=== PATIENT | male | born 1950 | race Caucasian/White ===

== ENCOUNTER 2018-08-31 12:52 | Inpatient (IN) | payer OTHER, MEDICAID ==
[~2018-08-31] VITALS: Ht 165.1 cm; Wt 50.9 kg
[2018-08-31] MEDS ORDERED: MOME13HF2 IH (13:20)
[2018-08-31] MEDS ORDERED: SENN-148 PO (13:20)
[2018-08-31] MEDS ORDERED: VALP250C3 PO (13:20)
[2018-08-31] MEDS ORDERED: DIVA250T4 PO (13:20)
[2018-08-31] MEDS ORDERED: ACET500C4 PO (13:20)
[2018-08-31] MEDS ORDERED: OLAN2.5T3 PO (13:20)
[2018-08-31] MEDS ORDERED: FAMO-132 PO (13:20)
[2018-08-31] MEDS ORDERED: ALBU8HFA4 INH (13:20)
[2018-08-31] MEDS ORDERED: DIVA500T2 PO (13:20)
[2018-08-31 13:29] LABS: BASOPHILS % (AUTO) 0.7 % (0.0-2.0); EOSINOPHILS # (AUTO) 0.1 K/uL (0.0-0.7); EOSINOPHILS % (AUTO) 2.3 % (0.0-7.0); HEMATOCRIT 41.7 % (36.7-47.1); HEMOGLOBIN 13.9 g/dL (12.5-16.3); LYMPHOCYTES # (AUTO) 1.8 K/uL (20.0-40.0); LYMPHOCYTES % (AUTO) 38.1 % (20.5-51.5); MEAN CORPUSCULAR HEMOGLOBIN 32.5 uug (23.8-33.4); MEAN CORPUSCULAR HGB CONC 33 g/dL (32.5-36.3); MEAN CORPUSCULAR VOLUME 97.6 fL (73.0-96.2); MONOCYTES # (AUTO) 0.7 K/uL (2.0-10.0); MONOCYTES % (AUTO) 13.5 % (0.0-11.0); NEUTROPHILS # (AUTO) 2.2 K/uL (1.8-8.9); NEUTROPHILS % (AUTO) 45.4 % (38.5-71.5); RED BLOOD CELL COUNT(AUTO) 4.28 MIL/uL (4.06-5.63); WHITE BLOOD COUNT (AUTO) 4.8 K/uL (3.6-10.2)
[2018-08-31 13:30] LABS: PLATELET COUNT (AUTO) 59 K/uL (152-348)
[2018-08-31 13:33] LABS: CARBON DIOXIDE 31 mmol/L (21-32); CHLORIDE 101 mmol/L (98-107); CREATININE 0.9 mg/dL (0.6-1.3); GLUCOSE 80 mg/dL (74-106); POTASSIUM 4.5 mmol/L (3.5-5.1); UREA NITROGEN, BLOOD 17 mg/dL (7-18)
[2018-08-31 13:39] LABS: ALANINE AMINOTRANSFERASE 13 U/L (16-63); ALKALINE PHOSPHATASE 69 U/L (50-136); ASPARTATE AMINOTRANSFERASE 19 U/L (15-37); BAND % (MANUAL) 38 % (0-10); BILIRUBIN,DIRECT 0.2 mg/dL (0.0-0.2); BILIRUBIN,TOTAL 0.4 mg/dL (0.2-1.0); LYMPHOCYTES % (MANUAL) 13 % (20-40); MONOCYTES % (MANUAL) 2 % (2-10); NEUTROPHILS % (MANUAL) 47 % (42-75); TOTAL PROTEIN, SERUM 6.5 g/dL (6.4-8.2); VALPROIC ACID 133 ug/mL (50-100)
[2018-08-31 13:43] LABS: ACETAMINOPHEN < 2.0 ug/mL (10-30)
[2018-08-31 13:45] LABS: ETHANOL < 3 MG/DL (0-0)
--- NOTE | 2018-08-31 13:45 | NUR ---
Patient is medically cleared by Dr Panda.
--- NOTE | 2018-08-31 13:58 | NUR ---
Lunch tray at bedside.
--- NOTE | 2018-08-31 15:43 | NUR ---
Patient is eating lunch with good appetite, still for psych evaluation
--- NOTE | 2018-08-31 16:36 | NUR ---
Sunny Davila at bedside for psych eval.
[2018-08-31 17:23] LABS: *BILIRUBIN,URIN NEGATIVE (NEGATIVE); *BLOOD, URINE NEGATIVE (NEGATIVE); *CLARITY,URINE CLEAR (CLEAR); *COLOR,URINE YELLOW (YELLOW); *KETONES,URINE NEGATIVE (NEGATIVE); LEUKOCYTE ESTERASE ,URINE NEGATIVE (NEGATIVE); NITRITE, URINE NEGATIVE (NEGATIVE); UGLUCOSE NEGATIVE (NEGATIVE)
[2018-08-31] MEDS ORDERED: OLANZAPINE 5 MG TABLET ONE (17:23)
--- NOTE | 2018-08-31 17:24 | NUR ---
Patient is eating dinner tray with good appetite, for transfer to 2nd floor as soon as possible
[2018-08-31 17:29] LABS: MUCUS,URINE FEW /LPF (0-FEW); WBC,URINE 0-3 /HPF (0-3)
[2018-08-31] MEDS ORDERED: OLANZAPINE 5 MG TABLET PO ONE (17:30)
[2018-08-31 17:33] LABS: *AMPHETAMINE, URINE NEGATIVE (NEGATIVE); *BARBITURATE, URINE NEGATIVE (NEGATIVE); *CANNABINOID, URINE NEGATIVE (NEGATIVE); *COCCAINE, URINE NEGATIVE (NEGATIVE); *OPIATE, URINE NEGATIVE (NEGATIVE); *PHENCYCLIDINE SCREEN,URINE NEGATIVE (NEGATIVE)
--- NOTE | 2018-08-31 17:49 | NUR ---
Per Adela-our ER registration/admitting office staff, "This patient's insurance wants this patient to be transferred to [facility] Dr Panda notified.
--- NOTE | 2018-08-31 17:57 | NUR ---
Patient's facesheet and summary report were faxed to [phone], pending transfer information still.
--- NOTE | 2018-08-31 18:04 | NUR ---
Patient ambulated to bathroom with one person assist.
--- NOTE | 2018-08-31 18:32 | NUR ---
Patient is resting comfortably on gurney with eyes closed. PATIENT IS PAIN FREE. Patient is waiting for transfer information (assigned bed & nurse) at this time.
--- NOTE | 2018-08-31 19:10 | NUR ---
ANJUAR to [facility], still waiting for transfer information@this time
--- NOTE | 2018-08-31 19:15 | NUR ---
Patient in bed eating, NAD
--- NOTE | 2018-08-31 20:36 | NUR ---
Spoke to Rebeka SolisEngineering Surveyor at [facility]. She stated that they are still looking for a sitter for patient. Direct line given, and awaiting call back for update.
--- NOTE | 2018-08-31 23:05 | NUR ---
ADMITTED PATIENT IN MED SURG FLOOR UNDER THE CARE OF DR. REID, BELONGING LIST DONE. PATIENT AWAKE BUT UNABLE TO ANSWER QUESTION, SPEECH GARBLED. BODY CHECK DONE, WITH GENERALIZED BODY RASHES/PSORIASIS, AND FOREHEAD RASHES WITH BLACK SCAB. PATIENT HAS NO DENTURES, NO HEARING AID. CALL LIGHT WITHIN REACH.
[2018-09-01 00:07] VITALS: BP 124/73
[2018-09-01] MEDS: IV NS 1000 ML 1,000 ML IV PRN ×3 (01:50→20:00)
[2018-09-01 05:36] VITALS: BP 149/74
--- NOTE | 2018-09-01 05:56 | NUR ---
PATIENT SLEPT MOST OF THE NIGHT, NO SOB NO CHEST PAIN NOTED. PATIENT HAS EPISODES VERBALLY ABUSIVE, CURSING STAFF. REDIRECT PATIENT, WITH SOME HELP. PATIENT HAS EPISODES OF AGITATION, RESISTIVE WITH CARE. RENDERED GOOD GAURANG CARE DUE TO EPISODES OF INCONTINENCE, HOWEVER, PATIENT USES URINAL ALSO FOR BLADDER ELIMINATION. CONT TO MONITOR.
[2018-09-01 07:05] LABS: BASOPHILS % (AUTO) 0.3 % (0.0-2.0); EOSINOPHILS # (AUTO) 0.1 K/uL (0.0-0.7); EOSINOPHILS % (AUTO) 2.3 % (0.0-7.0); HEMATOCRIT 40.1 % (36.7-47.1); HEMOGLOBIN 13.6 g/dL (12.5-16.3); MEAN CORPUSCULAR HEMOGLOBIN 32.8 uug (23.8-33.4); MEAN CORPUSCULAR HGB CONC 34 g/dL (32.5-36.3); MEAN CORPUSCULAR VOLUME 96.6 fL (73.0-96.2); MONOCYTES # (AUTO) 0.9 K/uL (2.0-10.0); NEUTROPHILS # (AUTO) 3.8 K/uL (1.8-8.9); NEUTROPHILS % (AUTO) 64.4 % (38.5-71.5); PLATELET COUNT (AUTO) 66 K/uL (152-348); RED BLOOD CELL COUNT(AUTO) 4.15 MIL/uL (4.06-5.63); WHITE BLOOD COUNT (AUTO) 5.9 K/uL (3.6-10.2)
[2018-09-01 07:15] LABS: CREATININE 0.8 mg/dL (0.6-1.3)
[2018-09-01 08:12] LABS: EOSINOPHILS % (MANUAL) 2 % (0-8); LYMPHOCYTES % (MANUAL) 17 % (20-40); MONOCYTES % (MANUAL) 15 % (2-10); NEUTROPHILS % (MANUAL) 66 % (42-75)
[2018-09-01] MEDS ORDERED: ALBUTEROL SULFATE 8 GM HFA.AER.AD INH SCH (09:15)
[2018-09-01] MEDS ORDERED: ACETAMINOPHEN ES 500 MG TABLET PO PRN (09:15)
[2018-09-01] MEDS: OLANZAPINE 2.5 MG TABLET PO SCH (09:15)
[2018-09-01] MEDS: FAMOTIDINE 20 MG TABLET PO SCH ×2 (09:15→21:18)
[2018-09-01] MEDS: FLUTICASONE/VILANTEROL 1 EACH BLST.W.DEV INH SCH (11:00)
[2018-09-01 11:04] VITALS: BP 119/79
[2018-09-01] MEDS: DIVALPROEX 500 MG TABLET.DR PO SCH (13:00)
[2018-09-01 15:11] VITALS: BP 122/68
[2018-09-01] MEDS ORDERED: MOMETASONE INH SCH (17:00)
[2018-09-01] MEDS ORDERED: FORMOTEROL INH SCH (17:00)
--- NOTE | 2018-09-01 18:39 | NUR ---
verbally aggressive and curses with every word spoken. slept a lot today except from when he needed to urinate, pt is continent and tries to get OOB. Bed alarm on at all times. new IV site on L arm. RFA IV infiltrated. Pt able to feed self. Bed low and locked. call light within reached. will cont to monitor.
--- NOTE | 2018-09-01 19:40 | NUR ---
RECEIVED PATIENT IN BED AWAKE NO COMPLAIN OF PAIN AT THIS TIME. ASSISTED WITH TOILETING, USES, KEPT CLEAN AND DRY. PATIENT FOLLOW INSTRUCTION, HOWEVER PATIENT HAS EPISODES OF VERBALLY ABUSIVE, CONT TO REORIENT.
[2018-09-01 20:23] VITALS: BP 148/63
[2018-09-01] MEDS: SENNOSIDES 1 TABLET PO SCH (21:18)
[2018-09-01] MEDS: ALBUTEROL SULFATE 2.5 MG/3 ML NEBU NEB SCH (22:24)
[2018-09-02] MEDS: ALBUTEROL SULFATE 2.5 MG/3 ML NEBU NEB SCH ×4 (00:38→18:56)
[2018-09-02 04:56] VITALS: BP 128/60
--- NOTE | 2018-09-02 07:04 | NUR ---
PATIENT AWAKE, NO SOB NO CHEST PAIN, WITH EPISODE OF COUGH, CONT ON HHT TX ORDERED. PATIENT VERBALLY ABUSIVE CURSES STAFF DURING NURSING CARE. PATIENT CONTINENT AND INCONTINET, ASSISTED WITH TOILETING, USES URINAL. KEPT CLEAN DRY AND COMFORTABLE, CONT TO MONITOR.
[2018-09-02 07:11] LABS: BASOPHILS % (AUTO) 0.6 % (0.0-2.0); EOSINOPHILS # (AUTO) 0.2 K/uL (0.0-0.7); EOSINOPHILS % (AUTO) 3.7 % (0.0-7.0); HEMATOCRIT 39.7 % (36.7-47.1); HEMOGLOBIN 13.2 g/dL (12.5-16.3); LYMPHOCYTES % (AUTO) 39.2 % (20.5-51.5); MEAN CORPUSCULAR HEMOGLOBIN 32.1 uug (23.8-33.4); MEAN CORPUSCULAR HGB CONC 33 g/dL (32.5-36.3); MEAN CORPUSCULAR VOLUME 96.7 fL (73.0-96.2); MONOCYTES # (AUTO) 0.8 K/uL (2.0-10.0); MONOCYTES % (AUTO) 16.7 % (0.0-11.0); NEUTROPHILS % (AUTO) 39.8 % (38.5-71.5); PLATELET COUNT (AUTO) 69 K/uL (152-348)
[2018-09-02 07:12] LABS: CREATININE 0.7 mg/dL (0.6-1.3); MAGNESIUM 1.5 mg/dL (1.8-2.4); PHOSPHOROUS 3.5 mg/dL (2.5-4.9); POTASSIUM 3.5 mmol/L (3.5-5.1)
[2018-09-02 08:17] VITALS: BP 127/78
[2018-09-02] MEDS: FAMOTIDINE 20 MG TABLET PO SCH ×2 (08:36→20:24)
[2018-09-02] MEDS: OLANZAPINE 2.5 MG TABLET PO SCH (08:36)
[2018-09-02] MEDS: DIVALPROEX 500 MG TABLET.DR PO SCH ×2 (08:36→13:44)
[2018-09-02] MEDS: FLUTICASONE/VILANTEROL 1 EACH BLST.W.DEV INH SCH (08:45)
[2018-09-02 11:20] VITALS: BP 105/64
[2018-09-02 11:57] LABS: BAND % (MANUAL) 3 % (0-10); EOSINOPHILS % (MANUAL) 6 % (0-8); LYMPHOCYTES % (MANUAL) 37 % (20-40); MONOCYTES % (MANUAL) 15 % (2-10); NEUTROPHILS % (MANUAL) 39 % (42-75)
[2018-09-02] MEDS: MAGNESIUM SULFATE/D5W 100 ML IV SCH ×2 (13:47→15:37)
[2018-09-02 15:38] VITALS: BP 101/68
--- NOTE | 2018-09-02 18:17 | NUR ---
doctor scott in the unit to see patient for psych consult.
[2018-09-02] MEDS: RIVASTIGMINE TARTRATE 1.5 MG CAPSULE PO SCH (20:24)
[2018-09-02] MEDS: SENNOSIDES 1 TABLET PO SCH (20:24)
[2018-09-02] MEDS: IV NS 1000 ML 1,000 ML IV PRN (20:25)
[2018-09-02 20:57] VITALS: BP 114/67
[2018-09-03] MEDS: ALBUTEROL SULFATE 2.5 MG/3 ML NEBU NEB SCH ×4 (01:22→19:28)
[2018-09-03 04:36] VITALS: BP 127/78
--- NOTE | 2018-09-03 05:15 | NUR ---
pt slept very little during the night, pt denies having any pain or difficulty breathing. pt was calm and cooperative most of the shift but would sometimes be very rude and verbally aggressive, but easily redirected. all needs met, safety measures are in place, call light within reach, bed alarm is on.
[2018-09-03] MEDS: FAMOTIDINE 20 MG TABLET PO SCH ×2 (08:18→20:11)
[2018-09-03] MEDS: OLANZAPINE 2.5 MG TABLET PO SCH ×2 (08:19→16:24)
[2018-09-03] MEDS: RIVASTIGMINE TARTRATE 1.5 MG CAPSULE PO SCH ×2 (08:19→20:12)
[2018-09-03] MEDS: DIVALPROEX 500 MG TABLET.DR PO SCH ×2 (08:20→12:52)
[2018-09-03] MEDS: FLUTICASONE/VILANTEROL 1 EACH BLST.W.DEV INH SCH (08:43)
[2018-09-03 09:14] LABS: CREATININE 0.9 mg/dL (0.6-1.3); MAGNESIUM 1.6 mg/dL (1.8-2.4); PHOSPHOROUS 3.6 mg/dL (2.5-4.9)
[2018-09-03 09:19] LABS: HEMOGLOBIN 12.8 g/dL (12.5-16.3); RED BLOOD CELL COUNT(AUTO) 3.95 MIL/uL (4.06-5.63)
[2018-09-03 09:35] LABS: BASOPHILS % (AUTO) 0.5 % (0.0-2.0); EOSINOPHILS # (AUTO) 0.3 K/uL (0.0-0.7); EOSINOPHILS % (AUTO) 3.7 % (0.0-7.0); HEMATOCRIT 38.3 % (36.7-47.1); LYMPHOCYTES # (AUTO) 1.8 K/uL (20.0-40.0); LYMPHOCYTES % (AUTO) 24.6 % (20.5-51.5); MEAN CORPUSCULAR HEMOGLOBIN 32.3 uug (23.8-33.4); MEAN CORPUSCULAR HGB CONC 33 g/dL (32.5-36.3); MEAN CORPUSCULAR VOLUME 96.9 fL (73.0-96.2); MONOCYTES # (AUTO) 1.2 K/uL (2.0-10.0); MONOCYTES % (AUTO) 16.2 % (0.0-11.0); THYROID STIMULATING HORMONE 1.55 mIU/mL (0.358-3.740)
[2018-09-03 09:40] LABS: PLATELET COUNT (AUTO) 94 K/uL (152-348); WHITE BLOOD COUNT (AUTO) 7.2 K/uL (3.6-10.2)
[2018-09-03] MEDS ORDERED: OLAN2.5T3 PO (09:50)
[2018-09-03] MEDS ORDERED: DIVA500T2 PO (09:50)
[2018-09-03] MEDS ORDERED: Rivastigmine Tartrate PO (09:50)
--- NOTE | 2018-09-03 09:52 | NUR ---
NEW ORDERS NOTED TO DISCHARGE PATIENT HOME TODAY NOTED FROM DR SOOD WILL AWAIT FOR THE WHIPPED TOPPING SUPERVISOR TO DETERMINE HIS FINAL DESTINATION.
--- NOTE | 2018-09-03 10:48 | NUR ---
ULTRA SOUND OF THE ABDOMEN COMPLETED ORDERED AWAITING FOR RESULTS.
[2018-09-03 11:13] LABS: BASOPHILS % (MANUAL) 2 % (0-2); EOSINOPHILS % (MANUAL) 4 % (0-8); LYMPHOCYTES % (MANUAL) 27 % (20-40); MONOCYTES % (MANUAL) 12 % (2-10); NEUTROPHILS % (MANUAL) 55 % (42-75)
[2018-09-03 11:18] VITALS: BP 122/78
[2018-09-03 15:04] VITALS: BP 113/71
[2018-09-03] MEDS: IV NS 1000 ML 1,000 ML IV PRN (16:24)
--- NOTE | 2018-09-03 18:00 | NUR ---
PER THE NEWSPAPER OR PERIODICAL EDITOR DISCHARGE IS PENDING DUE TO PLACEMENT WILL CONTINUE TO PROVIDE SAFE AND THERAPEUTIC ENVIRONMENT AT ALL TIMES COMPLIANT WITH MEDICATIONS.
[2018-09-03 19:55] VITALS: BP 135/84
[2018-09-03] MEDS: SENNOSIDES 1 TABLET PO SCH (20:12)
--- NOTE | 2018-09-03 21:00 | NUR ---
Received patient awake & alert no SOB denies chest pain, upset requesting for a sandwich. Needs provided. Routine night meds given, patient cooperative. Vital signs WNL.
--- NOTE | 2018-09-04 00:30 | NUR ---
Patient still up c/o hard time falling asleep due frequent urination. Blaming his continuos IVF infusion. IVF NS held for now per patient request.
[2018-09-04] MEDS: ALBUTEROL SULFATE 2.5 MG/3 ML NEBU NEB SCH ×3 (01:13→13:24)
--- NOTE | 2018-09-04 02:00 | NUR ---
Resting comfortably no sign of distress.
[2018-09-04 06:16] VITALS: BP 183/82
--- NOTE | 2018-09-04 07:37 | NUR ---
PATIENT IS ASLEEP BUT EASILY AROUSABLE ON ROUNDS NO S/S OF PAIN OR DISCOMFORTS AT THIS TIME BREATHING TREATMENT GIVEN ORDERED WITH NO SHORTNESS OF BREATH CONTINUES TO REFUSE HIS IVF GETS AGITATED WHEN I ATTEMPTED TO RECONNECT WILL LEAVE OFF FOR NOW PATIENT WAS DISCHARGED YESTERDAY BUT HAS PLACEMENT ISSUES AWAITING FOR THE RESEARCH AND DEVELOPMENT ENGINEER FOR INPUT.WILL CONTINUE TO OBSERVE.
[2018-09-04] MEDS: FAMOTIDINE 20 MG TABLET PO SCH (08:01)
[2018-09-04] MEDS: RIVASTIGMINE TARTRATE 1.5 MG CAPSULE PO SCH (08:01)
[2018-09-04] MEDS: DIVALPROEX 500 MG TABLET.DR PO SCH ×2 (08:01→12:04)
[2018-09-04] MEDS: OLANZAPINE 2.5 MG TABLET PO SCH ×2 (08:01→16:29)
[2018-09-04] MEDS: FLUTICASONE/VILANTEROL 1 EACH BLST.W.DEV INH SCH (08:51)
[2018-09-04 11:20] VITALS: BP 103/62
--- NOTE | 2018-09-04 15:00 | NUR ---
PER THE DRY SAND MOLDER PARTS SALESMAN PATIENT WILL BE DISCHARGED TODAY TO [facility] AND STATED TO CALL [facility] FOR TRANSPORTATION .
[2018-09-04 15:15] VITALS: BP 108/64
--- NOTE | 2018-09-04 15:45 | NUR ---
PER [facility] THEY WILL BE ABLE TO TRANSPORT THE PATIENT ABOUT 1800 TODAY PATIENT AWARE.
--- NOTE | 2018-09-04 18:28 | NUR ---
STILL AWAITING FOR THE AMBULANCE TO ARRIVE AND THE [employer] CALLED AND THEY STATED THAT THEY ARE ABOUT 5 MINUTES AWAY.
--- NOTE | 2018-09-04 18:49 | NUR ---
PATIENT DISCHARGED PICKED UP BY [facility] IN SATISFACTORY CONDITION WITH DISCHARGE INSTRUCTIONS AND ALL OF HIS .PERSONAL BELONGINGS
== END 2018-09-04 18:50 | DRG 52 ==
LOC: ER 12:52 → TELE 22:52 → UNDOADMIN 22:52 → MED 23:10 → MEDSURG3 09-03 11:10
PROVIDERS: ADMIT Internal Medicine Nephrology; ATTEND Internal Medicine Nephrology
DX: G92 Toxic encephalopathy (principal); E46 Unspecified protein-calorie malnutrition; D69.6 Thrombocytopenia, unspecified; F03.91 Unspecified dementia, unspecified severity, with behavioral disturbance; J44.9 Chronic obstructive pulmonary disease, unspecified; T42.6X5A Adverse effect of other antiepileptic and sedative-hypnotic drugs, initial encounter; Y92.099 Unspecified place in other non-institutional residence as the place of occurrence of the external cause; G40.909 Epilepsy, unspecified, not intractable, without status epilepticus; R45.1 Restlessness and agitation; Z79.51 Long term (current) use of inhaled steroids; J98.11 Atelectasis; Z79.899 Other long term (current) drug therapy; M46.04 Spinal enthesopathy, thoracic region; L40.9 Psoriasis, unspecified; Z68.1 Body mass index [BMI] 19.9 or less, adult; F29 Unspecified psychosis not due to a substance or known physiological condition
CPT/HCPCS: 36415; 71045; 76700; 80164; 80307; 83735; 84100; 84443; 85025; 93005; 94640; 94664; A4663; A9150; G0378; G0480; G0480-TC; J3475; J7030